=== PATIENT | female | born 1950 | race Caucasian/White ===

== ENCOUNTER 2016-06-21 14:30 | Emergency (ER) | payer MEDICARE ==
[~2016-06-21] VITALS: Ht 170.2 cm; Wt 92.2 kg
[~2016-06-21 14:30] MED LIST: ASPI-557 PO; FISH1CAP59 PO; LEVO75TA10 PO; LOSA1TAB96 PO; OMEP-96 PO; SIMV40TA5 PO; TRAM50TA4 PO; VITA200C23 PO
[2016-06-21 14:33] VITALS: Ht 170.2 cm; Wt 92.2 kg
--- OUTSIDE RECORDS SUMMARY | 2016-06-21 14:35 | XMS REPORT ---
Author Author GENERATED, SYSTEM Organization Unknown Address Unknown Phone Unavailable Care Team Providers Care Environmental Health Safety Engineer Name Role Phone UNASSIGNED DOCTOR , DOCTOR PP [phone] Reason For Visit Chief Complaint PHASE 2 TELEMETRY Social History Functional Status Vital Signs Results Problems Encounter Diagnosis No relevant problems exist. Encounters Encounter Diagnosis No relevant problems exist. Plan of Care Procedures * Completed , on 05/31/2008 12:00 AM Immunizations No immunizations administered or ordered. Hospital Course Hospital Discharge Instructions Allergies, Adverse Reactions, Alerts * Latex Allergy has not been assessed. * IV Contrast Allergy has not been assessed. Medication Medication reconciliation has not been performed.
--- OUTSIDE RECORDS SUMMARY | 2016-06-21 14:35 | XMS REPORT | Continuity of Care Document ---
Author Author [facility] Organization [facility] Address Unknown Phone Unavailable Allergies Active Description Code Type Severity Reaction Onset Reported/Identified Relationship to Patient Clinical Status Yes hydrocodone hydrocodone Drug Allergy Unknown N/A 08/15/2004 Yes LORTAB LORTAB Drug Allergy Unknown N/V 08/15/2004 Yes No Known Contrast Allergies No Known Contrast Allergies Drug Allergy Unknown N/A 08/15/2004 Yes No Known Food Allergies No Known Food Allergies Drug Allergy Unknown N/A 08/15/2004 Yes NO KNOWN LATEX ALLERGY/SENSITI NO KNOWN LATEX ALLERGY/SENSITI Drug Allergy Unknown N/A 2004 Yes No Known Drug Allergies No Known Drug Allergies Drug Allergy Unknown . 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 01/19/2014 Ja Nichole MD 424.1 AORTIC VALVE DISORDER 01/19/2014 Ja Nichole MD 518.52 OTH PULMONARY INSUFFICIENCY, NEC, FOLLOWING TRAUMA 01/19/2014 Ja Nichole MD 530.81 ESOPHAGEAL REFLUX 01/19/2014 Ja Nichole MD 584.9 ACUTE RENAL FAILURE, UNSPECIFIED 01/19/2014 Ja Nichole MD 786.52 PAINFUL RESPIRATION Procedures Code Description Performed By Performed On OPEN AND OTHER REPLACEMENT OF AORTIC VALVE Ja Nichole MD 01/19/2014 36.11 ([place])CORONARY BYPASS OF ONE CORONARY ARTERY Ja Nichole MD 01/19/2014 36.19 HRT REVAS BYPS ANAS Ja Kincaid MD 01/19/2014 39.61 EXTRACORP CIRCULAT AUXIL TO OPEN HEART SURG Ja Nichole MD 01/19/2014 39.63 CARDIOPLEGIA Ja Nichole MD 01/19/2014 Results Test Result Range ARTERIAL BLOOD GAS - 01/17/14 14:44 ABG BASE EXCESS 0.8 meq/L -3.0-3.0 ABG FIO2 ROOM AIR % ABG BICARBONATE 24.6 meq/L 23.0-28.0 ABG PCO2 37 mm Hg 34-45 ABG PH 7.44 7.35-7.45 ABG PO2 75 mm Hg 75-100 ABG O2 SATURATION 95 % 93-100 ABG SITE RT RADIAL MRSA SURVEILLANCE SCREEN - 01/17/14 15:12 Microbiology URINALYSIS, ROUTINE - 01/17/14 15:30 UA LEUKOCYTE ESTERASE DIPSTICK NEGATIVE NEGATIVE UA NITRITE DIPSTICK NEGATIVE NEGATIVE UA PROTEIN DIPSTICK NEGATIVE NEGATIVE UA GLUCOSE DIPSTICK NEGATIVE NEGATIVE UA KETONE DIPSTICK NEGATIVE NEGATIVE UA UROBILINOGEN DIPSTICK NORMAL NORMAL UA BILIRUBIN DIPSTICK NEGATIVE NEGATIVE UA BLOOD DIPSTICK NEGATIVE NEGATIVE UA SPECIFIC GRAVITY 1.009 1.015-1.025 UR PH 6.5 5.0-7.0 PROTHROMBIN TIME WITH INR - 01/17/14 15:50 INTERNATIONAL NORMAL RATIO 0.9 0.9-1.1 PROTHROMBIN TIME 9.9 sec 9.3-12.2 PARTIAL THROMBOPLASTIN TIME - 01/17/14 15:50 PARTIAL THROMBOPLASTIN TIME 32 sec 24-36 FIBRINOGEN - 01/17/14 15:50 FIBRINOGEN 356 mg/dL 200-400 CBC W/DIFF - 01/17/14 15:51 BASOPHIL # 0.0 k/cumm 0.0-0.2 BASOPHIL % 1 % 0-1 EOSINOPHIL # 0.2 k/cumm 0.1-0.5 EOSINOPHIL % 2 % 2-4 GRANULOCYTE # 4.0 k/cumm 2.0-9.0 GRANULOCYTE % 47 % 50-75 LYMPHOCYTE # 3.7 k/cumm 1.0-4.0 LYMPHOCYTE % 44 % 20-30 MEAN CELL HGB 29.4 pg 27.0-33.0 MEAN CELL HGB CONCENTRATION 33.3 g/dL 32.0-37.0 MEAN CELL VOLUME 88.3 fl 80.0-100.0 MONOCYTE # 0.4 k/cumm 0.1-1.0 MONOCYTE % 5 % 4-6 RED BLOOD CELL 4.45 m/cumm 4.00-6.00 RED CELL DISTRIBUTION WIDTH 13.7 % 11.0- 15.6 WHITE BLOOD CELL 8.4 k/cumm 5.0-10.0 HEMOGLOBIN 13.1 gm/dL 12.0-16.0 HEMATOCRIT 39.3 % 37.0-47.0 PLATELET COUNT 257 k/cumm 150-400 HEMOGLOBIN A1C - 01/17/14 15:51 HEMOGLOBIN A1C 5.8 % < 5.7 METABOLIC PANEL, BASIC - 01/17/14 15:51 POTASSIUM 3.9 mmol/L 3.5-5.3 EST GFR (MDRD) 48 mL/min > 59 ANION GAP 8 mmol/L 5-15 EST CrCl (CG) 48 mL/min > 59 GLUCOSE 85 mg/dL 70-99 CALCIUM 9.1 mg/dL 8.5-10.1 BLOOD UREA NITROGEN 19 mg/dL 7-20 CREATININE 1.2 mg/dL 0.6-1.0 SODIUM 140 mmol/L 135-148 CHLORIDE 107 mmol/L 98-110 CARBON DIOXIDE 25 mmol/L 21-32 MAGNESIUM - 01/17/14 15:51 MAGNESIUM 1.8 mg/dL 1.8-2.4 LIPID PANEL - 01/19/14 06:19 CHOLESTEROL/HDL RATIO 3.2 < 5.0 LDL CHOLESTEROL 106 mg/dL < 100 VLDL CHOLESTEROL 20 mg/dL < 30 TRIGLYCERIDES 99 mg/dL < 150 CHOLESTEROL 183 mg/dL < 200 HDL CHOLESTEROL 57 mg/dL > 39 SURGERY PROFILE BEDSIDE - 01/19/14 11:12 POTASSIUM 3.6 mmol/L 3.5-5.3 ABG BASE EXCESS -1.0 meq/L -3.0-3.0 ABG BICARBONATE 22.7 meq/L 23.0-28.0 METHOD Bedside ABG PCO2 31 mm Hg 34-45 ABG PH 7.48 7.35-7.45 ABG PO2 372 mm Hg 75-100 ABG O2 SATURATION 100 % 93-100 METHOD Bedside METHOD Bedside GLUCOSE 79 mg/dL 70-99 HEMOGLOBIN 9.5 gm/dL 12.0-16.0 HEMATOCRIT 28.0 % 37.0-47.0 SODIUM 141 mmol/L 135-148 CARBON DIOXIDE 24 mmol/L 21-32 CALCIUM IONIZED 4.6 mg/dL 4.5-5.3 SURGERY PROFILE BEDSIDE - 01/19/14 11:47 POTASSIUM 3.7 mmol/L 3.5-5.3 ABG BASE EXCESS 0.0 meq/L -3.0-3.0 ABG BICARBONATE 24.5 meq/L 23.0-28.0 METHOD Bedside ABG PCO2 37 mm Hg 34-45 ABG PH 7.43 7.35-7.45 ABG PO2 464 mm Hg 75-100 ABG O2 SATURATION 100 % 93-100 METHOD Bedside METHOD Bedside GLUCOSE 91 mg/dL 70-99 HEMOGLOBIN 9.2 gm/dL 12.0-16.0 HEMATOCRIT 27.0 % 37.0-47.0 SODIUM 139 mmol/L 135-148 CARBON DIOXIDE 26 mmol/L 21-32 CALCIUM IONIZED 4.5 mg/dL 4.5-5.3 SURGERY PROFILE BEDSIDE - 01/19/14 12:08 POTASSIUM 3.5 mmol/L 3.5-5.3 ABG BASE EXCESS -1.0 meq/L -3.0-3.0 ABG BICARBONATE 22.9 meq/L 23.0-28.0 METHOD Bedside ABG PCO2 33 mm Hg 34-45 ABG PH 7.45 7.35-7.45 ABG PO2 371 mm Hg 75-100 ABG O2 SATURATION 100 % 93-100 METHOD Note METHOD Bedside GLUCOSE 97 mg/dL 70-99 HEMOGLOBIN 7.5 gm/dL 12.0-16.0 HEMATOCRIT 22.0 % 37.0-47.0 SODIUM 141 mmol/L 135-148 CARBON DIOXIDE 24 mmol/L 21-32 CALCIUM IONIZED 3.7 mg/dL 4.5-5.3 SURGERY PROFILE BEDSIDE - 01/19/14 12:37 POTASSIUM 3.3 mmol/L 3.5-5.3 ABG BASE EXCESS -2.0 meq/L -3.0-3.0 ABG BICARBONATE 23.7 meq/L 23.0-28.0 METHOD Bedside ABG PCO2 41 mm Hg 34-45 ABG PH 7.37 7.35-7.45 ABG PO2 290 mm Hg 75-100 ABG O2 SATURATION 100 % 93-100 METHOD Bedside METHOD Bedside GLUCOSE 71 mg/dL 70-99 HEMOGLOBIN 7.1 gm/dL 12.0-16.0 HEMATOCRIT 21.0 % 37.0-47.0 SODIUM 142 mmol/L 135-148 CARBON DIOXIDE 25 mmol/L 21-32 CALCIUM IONIZED 4.2 mg/dL 4.5-5.3 SURGERY PROFILE BEDSIDE - 01/19/14 13:02 POTASSIUM 4.0 mmol/L 3.5-5.3 ABG BASE EXCESS 0.0 meq/L -3.0-3.0 ABG BICARBONATE 24.4 meq/L 23.0-28.0 METHOD Bedside ABG PCO2 38 mm Hg 34-45 ABG PH 7.42 7.35-7.45 ABG PO2 360 mm Hg 75-100 ABG O2 SATURATION 100 % 93-100 METHOD Bedside METHOD Bedside GLUCOSE 83 mg/dL 70-99 HEMOGLOBIN 7.5 gm/dL 12.0-16.0 HEMATOCRIT 22.0 % 37.0-47.0 SODIUM 142 mmol/L 135-148 CARBON DIOXIDE 26 mmol/L 21-32 CALCIUM IONIZED 3.9 mg/dL 4.5-5.3 HGB HCT - 01/19/14 13:33 MEAN CELL VOLUME 92.0 fl 80.0-100.0 HEMOGLOBIN 7.2 gm/dL 12.0-16.0 HEMATOCRIT 22.9 % 37.0-47.0 PLATELET COUNT - 01/19/14 13:33 PLATELET COUNT 115 k/cumm 150-400 PROTHROMBIN TIME WITH INR - 01/19/14 13:33 INTERNATIONAL NORMAL RATIO 1.7 0.9-1.1 PROTHROMBIN TIME 18.7 sec 9.3-12.2 FIBRINOGEN - 01/19/14 13:33 FIBRINOGEN 172 mg/dL 200-400 SURGERY PROFILE BEDSIDE - 01/19/14 13:36 POTASSIUM 3.9 mmol/L 3.5-5.3 ABG BASE EXCESS 0.0 meq/L -3.0-3.0 ABG BICARBONATE 24.3 meq/L 23.0-28.0 METHOD Bedside ABG PCO2 37 mm Hg 34-45 ABG PH 7.43 7.35-7.45 ABG PO2 431 mm Hg 75-100 ABG O2 SATURATION 100 % 93-100 METHOD Bedside METHOD Bedside GLUCOSE 65 mg/dL 70-99 HEMOGLOBIN 6.8 gm/dL 12.0-16.0 HEMATOCRIT 20.0 % 37.0-47.0 SODIUM 142 mmol/L 135-148 CARBON DIOXIDE 25 mmol/L 21-32 CALCIUM IONIZED 5.0 mg/dL 4.5-5.3 ARTERIAL BLOOD GAS - 01/19/14 14:55 ABG BASE EXCESS -3.2 meq/L -3.0-3.0 ABG BICARBONATE 21.8 meq/L 23.0-28.0 ABG PCO2 39 mm Hg 34-45 ABG PH 7.37 7.35-7.45 ABG PO2 340 mm Hg 75-100 ABG O2 SATURATION 99 % 93-100 CBC - 01/19/14 14:55 MEAN CELL HGB 28.7 pg 27.0-33.0 MEAN CELL HGB CONCENTRATION 31.9 g/dL 32.0-37.0 MEAN CELL VOLUME 89.8 fl 80.0-100.0 RED BLOOD CELL 3.73 m/cumm 4.00-6.00 RED CELL DISTRIBUTION WIDTH 14.4 % 11.0- 15.6 WHITE BLOOD CELL 14.7 k/cumm 5.0-10.0 HEMOGLOBIN 10.7 gm/dL 12.0-16.0 HEMATOCRIT 33.5 % 37.0-47.0 PLATELET COUNT 128 k/cumm 150-400 CALCIUM IONIZED - 01/19/14 14:55 CALCIUM IONIZED 4.8 mg/dL 4.5-5.3 METABOLIC PANEL, BASIC - 01/19/14 14:55 POTASSIUM 3.7 mmol/L 3.5-5.3 EST GFR (MDRD) > 60 mL/min > 59 ANION GAP 7 mmol/L 5-15 EST CrCl (CG) 45 mL/min > 59 GLUCOSE 92 mg/dL 70-99 CALCIUM 8.2 mg/dL 8.5-10.1 BLOOD UREA NITROGEN 18 mg/dL 7-20 CREATININE 0.9 mg/dL 0.6-1.0 SODIUM 146 mmol/L 135-148 CHLORIDE 113 mmol/L 98-110 CARBON DIOXIDE 26 mmol/L 21-32 MAGNESIUM - 01/19/14 14:55 MAGNESIUM 2.6 mg/dL 1.8-2.4 GLUCOSE (POC) - 01/19/14 14:58 GLUCOSE (POC) 89 mg/dL 70-99 GLUCOSE (POC) - 01/19/14 17:00 GLUCOSE (POC) 120 mg/dL 70-99 GLUCOSE (POC) - 01/19/14 18:58 GLUCOSE (POC) 112 mg/dL 70-99 GLUCOSE (POC) - 01/19/14 20:13 GLUCOSE (POC) 127 mg/dL 70-99 POTASSIUM - 01/19/14 20:14 POTASSIUM 4.9 mmol/L 3.5-5.3 GLUCOSE (POC) - 01/19/14 21:43 GLUCOSE (POC) 137 mg/dL 70-99 ARTERIAL BLOOD GAS - 01/19/14 21:45 ABG BASE EXCESS -5.0 meq/L -3.0-3.0 ABG FIO2 40 % ABG BICARBONATE 21.6 meq/L 23.0-28.0 ABG PCO2 47 mm Hg 34-45 ABG PEEP 5 CM ABG PH 7.28 7.35-7.45 ABG PO2 130 mm Hg 75-100 ABG O2 SATURATION 98 % 93-100 GLUCOSE (POC) - 01/19/14 23:31 GLUCOSE (POC) 139 mg/dL 70-99 ARTERIAL BLOOD GAS - 01/20/14 00:33 ABG BASE EXCESS -6.2 meq/L -3.0-3.0 ABG FIO2 40 % ABG BICARBONATE 21.0 meq/L 23.0-28.0 ABG PCO2 49 mm Hg 34-45 ABG PH 7.25 7.35-7.45 ABG PO2 129 mm Hg 75-100 ABG O2 SATURATION 98 % 93-100 GLUCOSE (POC) - 01/20/14 00:34 GLUCOSE (POC) 127 mg/dL -99 GLUCOSE (POC) - 01/20/14 01:18 GLUCOSE (POC) 128 mg/dL 70-99 CBC - 01/20/14 03:03 MEAN CELL HGB 28.2 pg 27.0-33.0 MEAN CELL HGB CONCENTRATION 31.1 g/dL 32.0-37.0 MEAN CELL VOLUME 90.9 fl 80.0-100.0 RED BLOOD CELL 4.18 m/cumm 4.00-6.00 RED CELL DISTRIBUTION WIDTH 14.9 % 11.0- 15.6 WHITE BLOOD CELL 13.5 k/cumm 5.0-10.0 HEMOGLOBIN 11.8 gm/dL 12.0-16.0 HEMATOCRIT 38.0 % 37.0-47.0 PLATELET COUNT 180 k/cumm 150-400 CALCIUM IONIZED - 01/20/14 03:03 CALCIUM IONIZED 4.8 mg/dL 4.5-5.3 METABOLIC PANEL, BASIC - 01/20/14 03:03 POTASSIUM 5.2 mmol/L 3.5-5.3 EST GFR (MDRD) 48 mL/min > 59 ANION GAP 10 mmol/L 5-15 EST CrCl (CG) 34 mL/min > 59 GLUCOSE 134 mg/dL 70-99 CALCIUM 8.2 mg/dL 8.5-10.1 BLOOD UREA NITROGEN 21 mg/dL 7-20 CREATININE 1.2 mg/dL 0.6-1.0 SODIUM 146 mmol/L 135-148 CHLORIDE 114 mmol/L 98-110 CARBON DIOXIDE 22 mmol/L 21-32 MAGNESIUM - 01/20/14 03:03 MAGNESIUM 2.3 mg/dL 1.8-2.4 GLUCOSE (POC) - 01/20/14 03:06 GLUCOSE (POC) 130 mg/dL 70-99 ARTERIAL BLOOD GAS - 01/20/14 04:31 ABG BASE EXCESS -5.4 meq/L -3.0-3.0 ABG FIO2 40 % ABG BICARBONATE 20.8 meq/L 23.0-28.0 ABG PCO2 44 mm Hg 34-45 ABG PEEP 5 CM ABG PH 7.29 7.35-7.45 ABG PEAK INSPIRATORY PRESSURE 8 CM ABG PO2 111 mm Hg 75-100 ABG VENT RATE 0 ABG O2 SATURATION 97 % 93-100 ABG TEMPERATURE 37.6 C GLUCOSE (POC) - 01/20/14 04:34 GLUCOSE (POC) 115 mg/dL 70-99 GLUCOSE (POC) - 01/20/14 06:34 GLUCOSE (POC) 122 mg/dL 70-99 GLUCOSE (POC) - 01/20/14 08:53 GLUCOSE (POC) 127 mg/dL 70-99 GLUCOSE (POC) - 01/20/14 10:30 GLUCOSE (POC) 153 mg/dL 70-99 METABOLIC PANEL, BASIC - 01/20/14 12:50 POTASSIUM 4.4 mmol/L 3.5-5.3 EST GFR (MDRD) 37 mL/min > 59 ANION GAP 9 mmol/L 5-15 EST CrCl (CG) 27 mL/min > 59 GLUCOSE 147 mg/dL 70-99 CALCIUM 8.1 mg/dL 8.5-10.1 BLOOD UREA NITROGEN 26 mg/dL 7-20 CREATININE 1.5 mg/dL 0.6-1.0 SODIUM 149 mmol/L 135-148 CHLORIDE 112 mmol/L 98-110 CARBON DIOXIDE 28 mmol/L 21-32 GLUCOSE (POC) - 01/20/14 21:22 GLUCOSE (POC) 136 mg/dL 70-99 CBC - 01/21/14 02:38 MEAN CELL HGB 28.7 pg 27.0-33.0 MEAN CELL HGB CONCENTRATION 31.1 g/dL 32.0-37.0 MEAN CELL VOLUME 92.2 fl 80.0-100.0 RED BLOOD CELL 3.87 m/cumm 4.00-6.00 RED CELL DISTRIBUTION WIDTH 15.1 % 11.0- 15.6 WHITE BLOOD CELL 16.5 k/cumm 5.0-10.0 HEMOGLOBIN 11.1 gm/dL 12.0-16.0 HEMATOCRIT 35.7 % 37.0-47.0 PLATELET COUNT 161 k/cumm 150-400 METABOLIC PANEL, BASIC - 01/21/14 02:38 POTASSIUM 5.0 mmol/L 3.5-5.3 EST GFR (MDRD) 34 mL/min > 59 ANION GAP 8 mmol/L 5-15 EST CrCl (CG) 26 mL/min > 59 GLUCOSE 129 mg/dL 70-99 CALCIUM 8.4 mg/dL 8.5-10.1 BLOOD UREA NITROGEN 34 mg/dL 7-20 CREATININE 1.6 mg/dL 0.6-1.0 SODIUM 139 mmol/L 135-148 CHLORIDE 106 mmol/L 98-110 CARBON DIOXIDE 25 mmol/L 21-32 PROTHROMBIN TIME WITH INR - 01/21/14 02:38 INTERNATIONAL NORMAL RATIO 1.0 0.9-1.1 PROTHROMBIN TIME 10.6 sec 9.3-12.2 GLUCOSE (POC) - 01/21/14 10:30 GLUCOSE (POC) 108 mg/dL 70-99 METABOLIC PANEL, BASIC - 01/21/14 13:27 POTASSIUM 4.7 mmol/L 3.5-5.3 EST GFR (MDRD) 44 mL/min > 59 ANION GAP 6 mmol/L 5-15 EST CrCl (CG) 31 mL/min > 59 GLUCOSE 106 mg/dL 70-99 CALCIUM 8.3 mg/dL 8.5-10.1 BLOOD UREA NITROGEN 34 mg/dL 7-20 CREATININE 1.3 mg/dL 0.6-1.0 SODIUM 138 mmol/L 135-148 CHLORIDE 105 mmol/L 98-110 CARBON DIOXIDE 27 mmol/L 21-32 GLUCOSE (POC) - 01/21/14 13:45 GLUCOSE (POC) 103 mg/dL 70-99 GLUCOSE (POC) - 01/21/14 20:53 GLUCOSE (POC) 96 mg/dL 70-99 GLUCOSE (POC) - 01/22/14 04:24 GLUCOSE (POC) 87 mg/dL 70-99 CBC - 01/22/14 04:53 MEAN CELL HGB 28.8 pg 27.0-33.0 MEAN CELL HGB CONCENTRATION 32.6 g/dL 32.0-37.0 MEAN CELL VOLUME 88.5 fl 80.0-100.0 RED BLOOD CELL 3.99 m/cumm 4.00-6.00 RED CELL DISTRIBUTION WIDTH 14.7 % 11.0- 15.6 WHITE BLOOD CELL 16.2 k/cumm 5.0-10.0 HEMOGLOBIN 11.5 gm/dL 12.0-16.0 HEMATOCRIT 35.3 % 37.0-47.0 PLATELET COUNT 143 k/cumm 150-400 METABOLIC PANEL, BASIC - 01/22/14 04:53 POTASSIUM 4.3 mmol/L 3.5-5.3 EST GFR (MDRD) 53 mL/min > 59 ANION GAP 8 mmol/L 5-15 EST CrCl (CG) 37 mL/min > 59 GLUCOSE 81 mg/dL 70-99 CALCIUM 8.4 mg/dL 8.5-10.1 BLOOD UREA NITROGEN 31 mg/dL 7-20 CREATININE 1.1 mg/dL 0.6-1.0 SODIUM 141 mmol/L 135-148 CHLORIDE 108 mmol/L 98-110 CARBON DIOXIDE 25 mmol/L 21-32 PROTHROMBIN TIME WITH INR - 01/22/14 06:57 INTERNATIONAL NORMAL RATIO 1.3 0.9-1.1 PROTHROMBIN TIME 14.3 sec 9.3-12.2 GLUCOSE (POC) - 01/22/14 10:29 GLUCOSE (POC) 98 mg/dL 70-99 GLUCOSE (POC) - 01/22/14 14:30 GLUCOSE (POC) 95 mg/dL 70-99 CBC - 01/23/14 05:14 MEAN CELL HGB 29.2 pg 27.0-33.0 MEAN CELL HGB CONCENTRATION 32.4 g/dL 32.0-37.0 MEAN CELL VOLUME 90.2 fl 80.0-100.0 RED BLOOD CELL 3.56 m/cumm 4.00-6.00 RED CELL DISTRIBUTION WIDTH 14.6 % 11.0- 15.6 WHITE BLOOD CELL 10.1 k/cumm 5.0-10.0 HEMOGLOBIN 10.4 gm/dL 12.0-16.0 HEMATOCRIT 32.1 % 37.0-47.0 PLATELET COUNT 168 k/cumm 150-400 PROTHROMBIN TIME WITH INR - 01/23/14 05:14 INTERNATIONAL NORMAL RATIO 3.1 0.9-1.1 PROTHROMBIN TIME 34.3 sec 9.3-12.2 METABOLIC PANEL, BASIC - 01/23/14 05:14 POTASSIUM 3.7 mmol/L 3.5-5.3 EST GFR (MDRD) > 60 mL/min > 59 ANION GAP 8 mmol/L 5-15 EST CrCl (CG) 45 mL/min > 59 GLUCOSE 74 mg/dL 70-99 CALCIUM 8.6 mg/dL 8.5-10.1 BLOOD UREA NITROGEN 21 mg/dL 7-20 CREATININE 0.9 mg/dL 0.6-1.0 SODIUM 141 mmol/L 135-148 CHLORIDE 106 mmol/L 98-110 CARBON DIOXIDE 27 mmol/L 21-32 CBC - 01/24/14 05:36 MEAN CELL HGB 28.9 pg 27.0-33.0 MEAN CELL HGB CONCENTRATION 32.4 g/dL 32.0-37.0 MEAN CELL VOLUME 89.2 fl 80.0-100.0 RED BLOOD CELL 3.32 m/cumm 4.00-6.00 RED CELL DISTRIBUTION WIDTH 14.7 % 11.0- 15.6 WHITE BLOOD CELL 8.4 k/cumm 5.0-10.0 HEMOGLOBIN 9.6 gm/dL 12.0-16.0 HEMATOCRIT 29.6 % 37.0-47.0 PLATELET COUNT 196 k/cumm 150-400 PROTHROMBIN TIME WITH INR - 01/24/14 05:36 INTERNATIONAL NORMAL RATIO 3.3 0.9-1.1 PROTHROMBIN TIME 37.1 sec 9.3-12.2 METABOLIC PANEL, BASIC - 01/24/14 05:36 POTASSIUM 3.6 mmol/L 3.5-5.3 EST GFR (MDRD) > 60 mL/min > 59 ANION GAP 8 mmol/L 5-15 EST CrCl (CG) 51 mL/min > 59 GLUCOSE 90 mg/dL 70-99 CALCIUM 8.7 mg/dL 8.5-10.1 BLOOD UREA NITROGEN 15 mg/dL 7-20 CREATININE 0.8 mg/dL 0.6-1.0 SODIUM 141 mmol/L 135-148 CHLORIDE 106 mmol/L 98-110 CARBON DIOXIDE 27 mmol/L 21-32 CBC - 01/25/14 04:25 MEAN CELL HGB 29.0 pg 27.0-33.0 MEAN CELL HGB CONCENTRATION 32.7 g/dL 32.0-37.0 MEAN CELL VOLUME 88.8 fl 80.0-100.0 RED BLOOD CELL 3.31 m/cumm 4.00-6.00 RED CELL DISTRIBUTION WIDTH 14.8 % 11.0- 15.6 WHITE BLOOD CELL 8.0 k/cumm 5.0-10.0 HEMOGLOBIN 9.6 gm/dL 12.0-16.0 HEMATOCRIT 29.4 % 37.0-47.0 PLATELET COUNT 220 k/cumm 150-400 PROTHROMBIN TIME WITH INR - 01/25/14 04:25 INTERNATIONAL NORMAL RATIO 2.4 0.9-1.1 PROTHROMBIN TIME 26.4 sec 9.3-12.2 METABOLIC PANEL, BASIC - 01/25/14 04:25 POTASSIUM 3.7 mmol/L 3.5-5.3 EST GFR (MDRD) > 60 mL/min > 59 ANION GAP 8 mmol/L 5-15 EST CrCl (CG) 45 mL/min > 59 GLUCOSE 88 mg/dL 70-99 CALCIUM 8.6 mg/dL 8.5-10.1 BLOOD UREA NITROGEN 14 mg/dL 7-20 CREATININE 0.9 mg/dL 0.6-1.0 SODIUM 142 mmol/L 135-148 CHLORIDE 108 mmol/L 98-110 CARBON DIOXIDE 26 mmol/L 21-32 Encounters ACCT No. Visit Date/Time Discharge Status Pt. Type Provider Facility Loc./Unit Complaint [id number] 01/19/2014 05:52:00 2013 17:02:00 DIS Inpatient Dionisio BUTLER, [facility] [id number] 01/17/2014 13:05:00 2013 13:05:00 DIS Outpatient Dionisio BUTLER, [facility] ARIANNA
--- OUTSIDE RECORDS SUMMARY | 2016-06-21 14:35 | XMS REPORT | Referral Summary ---
Author Author [facility] Organization [facility] Address Unknown Phone Unavailable Care Team Providers Care Python Developer Name Role Phone Deshawn Decker II Primary Care Physician [phone] Encounter Date(s): 03/07/15 - 03/07/15 [facility] [address] [place] [address] Discharge Diagnosis: Left hip pain Discharge Diagnosis: Greater trochanteric bursitis of left hip Discharge Disposition: 01-Home or Self Care Attending Physician: Collin Munoz MD Admitting Physician: Collin Munoz MD Vital Signs Most recent to 1 oldest [Reference Range]: Temperature Temporal 36.4 degC Artery [36.3-37.8 (03/07/15 11:19 AM) degC] Peripheral Pulse 77 bpm Rate [60-100 bpm] (03/07/15 6:32 AM) Heart Rate Monitored 76 bpm [60-100 bpm] (03/07/15 11:45 AM) Respiratory Rate 20 br/min [14-20 br/min] (03/07/15 11:45 AM) Blood Pressure 134/69 mmHg [90-140/60-90 mmHg] (03/07/15 11:45 AM) SpO2 95 % (03/07/15 11:45 AM) Problem List Condition Effective Dates Status Health Status Informant Thyroid Active patient disorder(Confirmed) Hyperlipidemia(Confi Active patient rmed) HTN Active patient (hypertension)(Confi rmed) Allergies, Adverse Reactions, Alerts No Known Medication Allergies Medications Aspir 81 81 mg, Oral, Daily, 0 Refill(s) Start Date: 03/07/15 Status: Ordered CoQ10 300 mg, Oral, Daily, 0 Refill(s) Start Date: 03/07/15 Status: Ordered Coumadin 5 mg, Oral, Daily, 0 Refill(s) Start Date: 03/07/15 Status: Ordered Fish Oil 1,000 mg, Oral, Daily, 0 Refill(s) Start Date: 03/07/15 Status: Ordered metoprolol tartrate 25 mg oral tablet 25 mg 1 tabs, Oral, BID, # 180 tabs, 0 Refill(s) Start Date: 03/07/15 Status: Ordered PriLOSEC 20 mg, Oral, Daily, 0 Refill(s) Start Date: 03/07/15 Status: Ordered simvastatin 10 mg, Oral, Bedtime (once a day), 0 Refill(s) Start Date: 03/07/15 Status: Ordered Synthroid 75 mcg (0.075 mg) oral tablet 75 mcg 1 tabs, Oral, Daily, # 30 tabs, 0 Refill(s) Start Date: 03/07/15 Status: Ordered Results Chemistry Most recent to 1 oldest [Reference Range]: Blood Glucose, 84 mg/dL Capillary [70-100 (03/07/15 6:46 AM) mg/dL] Immunizations No data available for this section Procedures Procedure Date Related Diagnosis Body Site Open Reduction Internal Fixation Hip (Left)1 03/07/15 Appendectomy back surgery CABG (Coronary artery bypass grafting) planned Hysterectomy neck surgery right arm surgery 1auto-populated from documented surgical case Social History Social History Type Response Smoking Status Never smoker Assessment and Plan No data available for this section
--- OUTSIDE RECORDS SUMMARY | 2016-06-21 14:35 | XMS REPORT ---
Author Author [employer], SYSTEM Organization Unknown Address Unknown Phone Unavailable Care Team Providers Care Mold Shaker Name Role Phone UNASSIGNED DOCTOR , DOCTOR PP [phone] Reason For Visit Chief Complaint PHASE 2 [...]
--- OUTSIDE RECORDS SUMMARY | 2016-06-21 14:46 | XMS REPORT | Continuity of Care Document ---
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 Type Provider Facility Loc./Unit Complaint [id number] 01/19/2014 05:52:00 2013 17:02:00 DIS Inpatient Dionisio BUTLER, [facility] W.3TN [id number] 01/17/2014 13:05:00 2013 13:05:00 DIS Outpatient Dionisio BUTLER, [facility] ARIANNA
--- OUTSIDE RECORDS SUMMARY | 2016-06-21 14:47 | XMS REPORT ---
Author Author [employer] Organization Unknown Address Unknown Phone Unavailable Care Team Providers Care Gold Leaf Printer Name Role Phone UNASSIGNED DOCTOR , DOCTOR PP [phone] Reason For Visit Chief Complaint PHASE 2 [...]
--- OUTSIDE RECORDS SUMMARY | 2016-06-21 14:47 | XMS REPORT ---
Author Author [employer], [employer] Organization Unknown Address Unknown Phone Unavailable Care Team Providers Care Diesel Inspector Name Role Phone UNASSIGNED DOCTOR , DOCTOR PP [phone] Reason For Visit Chief Complaint PHASE 2 [...]
--- NOTE | 2016-06-21 14:57 | NUR ---
PROVIDER DR. AG AT BEDSIDE FOR EXAM.
[2016-06-21] MEDS ORDERED: METO25TA6 PO (15:02)
[2016-06-21] MEDS ORDERED: WARF5TAB6 PO (15:02)
--- NOTE | 2016-06-21 15:08 | NUR ---
XRAY PORTABLE XRAY AT BEDSIDE.
[2016-06-21] MEDS ORDERED: MULT-933 PO (15:09)
[2016-06-21] MEDS ORDERED: VITA1TAB21 PO (15:09)
--- NOTE | 2016-06-21 15:33 | DI ---
Indication: ITS.REASON: Fall today with anterior knee Pain PROCEDURE: KNEE RIGHT 3 VIEWS: Encounter: Initial Comparison: None Findings: There is no acute fracture, dislocation or malalignment identified. Prepatellar soft tissue swelling. Impression: No acute osseous abnormality. .
[2016-06-21 16:05] LABS: INR 3.82 (0.76-1.04); PROTHROMBIN TIME 41.6 SEC (9.31-12.49)
--- NOTE | 2016-06-21 16:08 | NUR ---
PROVIDER DR. AG AT BEDSIDE TO SPEAK WITH PT.
--- NOTE | 2016-06-21 16:28 | NUR ---
ELISE GRAY AT BEDSIDE.
[2016-06-21] MEDS ORDERED: OXYC1TAB8 PO ×2 (16:54→16:58)
[2016-06-21] MEDS ORDERED: ONDA4TAB7 PO (16:54)
--- NOTE | 2016-06-21 16:55 | ERPDOC ---
Departure Disposition Decision Date: Jun 21, 2016 Disposition Decision Time: 16:52 Disposition: 01 DISCHARGED HOME, SELF-CARE Impression Impression Impression: Primary Impression: Knee pain, acute Laterality: right Qualified Codes: M25.561 - Pain in right knee Additional Impressions: Supratherapeutic INR Hematoma Severity: Moderate Condition: Improved Seen By: Physician only Referrals: AMAYA GHOSH II, MD (PCP) 2 Days Patient Instructions: Knee Pain (ED) Problems/Meds/Labs Reviewed?: Yes Medications reviewed and manag: Yes Follow up care ordered?: Yes Mental Status: Alert, Oriented Scripts Oxycodone HCl/Acetaminophen (Percocet 5-325 mg Tablet) 5-325 Tablet 1 TAB PO Q4HPRN Y for PAIN for 3 Days, #18 TAB 0 Refills Prov: DA AG DO 06/21/16 Ondansetron (Zofran Odt) 4 Mg Tab.rapdis 4 MG PO Q4HR Y for NAUSEA &/OR VOMITING for 3 Days, #18 TAB 0 Refills Prov: DA AG DO 06/21/16 HPI - General Medical General Chief Complaint: Lower Extremity Injury Stated Complaint: RT KNEE PAIN Time Seen by Provider: 14:39 Source: patient Exam Limitations: no limitations HPI - General Medical Initial Comments 66-year-old female presents to the emergency department with a chief complaint of an injury to her right knee. 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 She states this caused her to stumble forward and land on her right knee. She denies striking her head, loss of consciousness, or neck pain. Patient is anticoagulated on Coumadin. Her INR was checked today and it was 3.8 at the [facility]. Patient notes a moderate dull aching sensation in the right knee diffusely. No radiation. Pain increases with ambulation and improves with rest. Patient denies any other complaints or associated symptoms. No other injuries. Injury to the right knee occurred immediately prior to arrival to the hospital today. Patient's symptoms have been persistent in nature since onset. Symptoms have had a gradual progression in nature. Occurred At: home Onset: Constant Allergies: Coded Allergies: NKDA (Verified Allergy, Unknown, 06/21/16) Past History Past Medical History Pt denies signifigant [facility] Surgical History Cardiac: valve replacement Family History Family History: Negative Vaccines Hx Influenza Vaccination: Yes (12/08/13) Hx Pneumococcal Vaccination: Yes (2010) Social History Smoking Status: Never smoker Substance Use Type: does not use Alcohol Intake: none Review of Systems Constitutional Constitutional: DENIES: chills, fever Eyes General: DENIES: erythema, exudate Lids/Accessories: DENIES: erythema, swelling Vision: DENIES: acuity, blurring ENMT Ears: DENIES: drainage, pain Hearing: DENIES: hearing loss Balance: DENIES: ataxia, falling to one side Sinuses: DENIES: congestion, pain Nose: DENIES: nosebleeds, pain Mouth/Throat: DENIES: painful swallowing, sore throat Teeth: DENIES: pain Jaw: DENIES: pain Cardiovascular Cardiac: DENIES: chest pain, dyspnea on exertion Rhythm/Rate: DENIES: irregular beat, palpitations Vascular: DENIES: pedal edema, unilateral swelling Pulmonary Respiratory: DENIES: cough, dyspnea, pleuritic chest pain, sputum GI Upper Abdomen: DENIES: nausea, pain, vomiting Lower Abdomen: DENIES: diarrhea, pain General: DENIES: dysuria, pain Musculoskeletal General: joint pain, tenderness Integumentary Skin: DENIES: itching, rash Neurological General: DENIES: headache, numbness Psychiatric Psychiatric: DENIES: emotional instability, suicidal ideation/attempt Endocrine Endocrine: DENIES: polydipsia, polyphagia Hematologic/Lymphatic Hematologic/Lymphatic: DENIES: frequent nosebleeds, lymphadenopathy Allergic/Immunological Allergic/Immunoligical: DENIES: allergic reactions, hives Physical Exam General General Nourishment: well nourished, well developed, appears stated age, no acute distress, adult General Body Habitus: well groomed Vitals and Pain First Documented Vital Signs Date Time Temp Pulse Resp B/P Pulse Ox O2 Delivery O2 Flow Rate FiO2 06/21/16 14:33 98.3 81 20 133/63 96 Room Air Weight: Kilograms: 92.200 Height (feet): 5 Height (inches): 7.00 Triage Pain Scale: RN VS reviewed by Provider: Yes Normal Exams: Head: Normocephalic w/o trauma Eyes: Pupils are PERRLA w/ EOMI, No scleral icterus, irritation, or foreign bodies noted ENMT: No facial trauma, nasal exudates, pharyngeal erythema, or exudates are noted Dental: No fractured, loose, or missing teeth noted Neck: Full range of motion, without adenopathy, JVD, bruits or thyromegaly Chest/Resp: Clear all wilson, with good airflow, and symmetry bilaterally CV: Regular rate and rhythm, without murmur or gallop, Pulses 2+ all extremities, capillary refill, <2 seconds all ext., no pedal edema noted Abdomen: Bowel sounds positive, soft, non-tender, non-distended, no hepatosplenomegaly, masses or bruits noted Lymphatic: No lymphadenopathy, or lymphedema noted Integumentary: No rashes, hives, or bruising noted, hair and nails, without abnormality Neurologic: Patient is alert, and oriented, cranial nerves, motor/sensory/ cerebellar, exams w/o gross deficits, to observation Psychiatric: Patient exhibits, appropriate attention, emotion and affect Musculoskeletal (brief) Comments R Knee - slightly decreased range of motion secondary to pain. Trace edema with ecchymosis. Pulses intact. Sensation intact. Capillary refill less than 2. No erythema. No other tenderness in the right lower extremity. Diffusely tender to palpation. All other extremities are unremarkable. Differential Diagnoses Considering: Other (sprain/strain/contusion/fracture) Progress Results/Orders Orders Procedure Category Date Status Time Knee Right 3 Views RAD 06/21/16 Resulted 15:02 INR LAB 06/21/16 Complete Hydrocodone/Acetaminophen PHA 06/21/16 Complete ([place] 7.5/325 16:30 Lab Results Laboratory Tests Test 06/21/16 15:50 Prothromb Time International Ratio 3.82 Medications Current ED Medications Acetaminophen/ Hydrocodone Bitart ([place] 7.5/325) 1 tab O ONCE PO Last administered on 06/21/16t 16:33; Start 06/21/16 at 16:30; Stop 06/21/16 at 16:31 ; Status DC Progress Progress Imaging is discussed in detail with the patient and questions are answered. Patient is given analgesic pain medication in the emergency department with improvement of symptoms. Patient is placed in a knee immobilizer with good alignment by the RN. Patient is distal neurovascular intact post-application of knee immobilizer. Patient is seen in the emergency department and examined by orthopedics who are in agreement with the current plan of management. Patient is provided with a prescription for a walker. Patient is discussed with Dr. Diaz who is covering for her primary care physician and the decision is made to have the patient hold her Coumadin for today and then resume tomorrow. She will follow-up with Dr. Ghosh on Friday morning for an INR check. Patient verbalizes agreement and understanding. Patient is to return to the emergency Department if her condition worsens or changes in any manner. Patient acknowledges the strict return precautions that were provided. Prescription for Percocet and Zofran is provided. Xray Xray : Xray: Knee R Interpretation: Normal (except for mild prepatellar fluid), Interpreted by Me, Reviewed Written Report DA AG DO Jun 21, 2016 16:55
[2016-06-21 17:13] VITALS: BP 120/58; PULSE 85; RESP 20; TEMP 98.3; O2SAT 97
--- NOTE | 2016-06-21 17:13 | NUR ---
DISCHARGE WRITTEN INSTRUCTIONS WITH ZOFRAN AND PERCOCET RX REVIEWED AND SENT WITH PT. PT VERBALIZES UNDERSTANDING OF DI AND MEDICATIONS, DENIES QUESTIONS. PT EXITS ER BY W/C AND IS ASSISTED INTO VEHICLE AT THIS TIME.
--- NOTE | 2016-06-21 17:57 | CONSPD ---
Consultation Info Date DATE: 06/21/16 TIME: 17:36 Attending Physician João OLIVARES / Severiano BUTLER Reason for Consultation: Right knee injury / fall. Impression/Recommendation Impression/Recommendation: (1) Hemorrhagic prepatellar bursitis of right knee Status: Acute Recommendation: We talked about aspiration to reduce pressure on the knee. However, I believe this would increase her risk of infection and could result in drainage from the needle site. Additionally, the bursa could redevelop more blood with her INR being 3.8 . Her pain is not too bad at rest and she feels going home with ice and pain meds is reasonable. Mrs Stephenson will keep ice on the knee and elevate the leg. She will stay off work until I see her back in the office on Friday. A knee immobilizer will be provided to wear when she is up walking to prevent falls. She is a fall risk and has an elevated INR. She was instructed to be very careful and prevent falls. Her INR will be addressed by the ER physician and PCP. (2) Supratherapeutic INR Status: Acute Ortho HPI HPI Elements Location: FOUND knee (right) Injury: Yes (Fell coming down her stairs at home. Landed directly on the knee but was able to get up by herself. She walked for the next 2 hrs and climbed stairs without pain. After walking at [facility] the knee became more painful and started to swell. She came to the ER for evaluation.) Pain: FOUND sharp, FOUND throbbing, FOUND ache Onset: Gradual (Pain increased 2 hrs after the fall.) Previous Injury: No Aggrevated by: FOUND walking, FOUND all activity, FOUND getting out of a chair Associated Symptoms: FOUND weakness, FOUND swelling Treatments Tried: FOUND pain medications, FOUND immobilization X-ray Findings: FOUND other (No acute fracture or dislocation. Normal knee xray.) Recommendation: FOUND other (Ice, elevate, Rest, Immobilize when ambulating to prevent giving out. Pain meds will be provided. F/U in ortho clinic on Friday. ) Review of Systems Constitutional: DENIES: chills, fever, night sweats Cardiovascular DENIES: chest pain Rhythm/Rate: DENIES: palpitations Pulmonary Respiratory: DENIES: cough, dyspnea GI Upper Abdomen: DENIES: nausea, vomiting Lower Abdomen: DENIES: pain General: DENIES: burning, dysuria, pain Musculoskeletal General: see HPI Integumentary Skin: DENIES: infections, lesion, rash Neurological General: other (Did not strike my head.), DENIES: blackouts, numbness, syncope , tingling Hematologic/Lymphatic easy bruising Past Medical History Adult Problem List Updates Mechanical heart valve. GERD Dyslipidemia Hypothyroidism Surgical History Patient's Surgical History: Heart valve replacement. Current Medications Aspirin (Aspir 81) 81 Mg Tablet.dr, 81 MG PO HS, (Reported) Last Taken: Unknown Dose on 06/20/161999 Levothyroxine Sodium ( Levothyroxine Sodium) 75 Mcg Tablet, 75 MCG PO DAILY, (Reported) Last Taken: Unknown Dose on 06/21/16829 Metoprolol Tartrate (Metoprolol Tartrate) 25 Mg Tablet, 25 MG PO DAILY, (Reported) Last Taken: Unknown Dose on 06/21/16829 Multivitamin (Multi-Day Vitamins) 1 Each Tablet, 1 TAB PO DAILY, (Reported) Last Taken: Unknown Dose on 06/21/16829 Omeprazole Magnesium (Omeprazole Magnesium) 20 Mg Capsule.dr, 20 MG PO DAILY, (Reported) Last Taken: Unknown Dose on 06/21/16829 Ondansetron (Zofran Odt) 4 Mg Tab.rapdis, 4 MG PO Q4HR PRN for NAUSEA &/OR VOMITING Oxycodone HCl/Acetaminophen (Percocet 5-325 mg Tablet) 5-325 Tablet, 1 TAB PO Q4HPRN PRN for PAIN Simvastatin (Simvastatin) 40 Mg Tablet, 40 MG PO HS, (Reported) Last Taken: Unknown Dose on 06/20/161999 Tramadol HCl (Tramadol HCl) 50 Mg Tablet, 50 MG PO Q4HR PRN for PAIN, (Reported) Last Taken: 2 tabs on 06/21/161199 Vitamin B Complex (Vitamin B Complex) 1 Each Tablet, 1 TAB PO DAILY, (Reported) Last Taken: Unknown Dose on 06/21/16829 Warfarin Sodium (Warfarin Sodium) 5 Mg Tablet, 5 MG PO DAILY, (Reported) Last Taken: Unknown Dose on 06/20/161999 Allergies Allergies: Coded Allergies: NKDA (Verified Allergy, Unknown, 06/21/16) Vaccines fall "A FEW MONTHS AGO" Physical Exam General General: well nourished, well developed, no acute distress Respiratory FOUND non-labored Cardiovascular FOUND pedal pulses intact Capillary Refill: <2 sec Musculoskeletal Musculoskeletal : Side: Right Knee: FOUND effusion (mild.), FOUND other (Marked prepatellar bursa swelling. Unable to do ligamentous exam due to pain and swelling.), FOUND painful ROM Integumentary FOUND brusing, FOUND other (No open abrasions / lesions.) Neurologic FOUND intact to light touch Psychiatric FOUND alert, FOUND normal affect Laboratory Laboratory Tests Test 06/21/16 15:50 Prothromb Time International Ratio 3.82 Radiology Radiology No acute fx , dislocation or other injury. Prepatellar bursal swelling noted on xrays. FLORINA ARAUZ Jun 21, 2016 17:46
== END 2016-06-21 17:13 | disposition home or self-care (01) ==
LOC: ED 14:30
DX: S80.01XA Contusion of right knee, initial encounter (principal); M70.41 Prepatellar bursitis, right knee; Z79.01 Long term (current) use of anticoagulants; X50.1XXA Overexertion from prolonged static or awkward postures, initial encounter; Y93.01 Activity, walking, marching and hiking; Y92.008 Other place in unspecified non-institutional (private) residence as the place of occurrence of the external cause; Y99.8 Other external cause status
CPT/HCPCS: 36415; 73562; 85610; 99283; A9270; L1830